=== PATIENT | male | born 1940 | race Two or more races ===

== ENCOUNTER 2025-03-18 19:02 | Emergency (ER) | payer MEDICARE, OTHER ==
[~2025-03-18] VITALS: Ht 162.6 cm; Wt 63.5 kg
[2025-03-18 19:20] VITALS: TEMP 98.7
[2025-03-18] MEDS ORDERED: ACETAMINOPHEN ES 500 MG TABLET ONE (19:52)
[2025-03-18] MEDS: ACETAMINOPHEN ES 500 MG TABLET PO ONE (19:58)
[2025-03-18] MEDS ORDERED: IBUP-1490 PO (21:54)
[2025-03-18 22:10] VITALS: BP 129/80; O2SAT 98
== END 2025-03-18 22:11 | disposition home or self-care (01) ==
LOC: ER 19:06
DX: S00.83XA Contusion of other part of head, initial encounter (principal); R60.0 Localized edema; V49.9XXA Car occupant (driver) (passenger) injured in unspecified traffic accident, initial encounter; Y93.89 Activity, other specified; Y92.410 Unspecified street and highway as the place of occurrence of the external cause; Y99.8 Other external cause status
CPT/HCPCS: 70450-TC; 70486-TC; 72125-TC; L0172